=== PATIENT | female | born 1990 | race Caucasian/White ===

== ENCOUNTER 2016-07-11 04:58 | Emergency (ER) | payer BC ==
[2016-07-11] MEDS ORDERED: Lactated Ringers 1,000 ML IV SCH (06:00)
[2016-07-11] MEDS ORDERED: Potassium Chloride 10% 20 MEQ/15 ML Soln 15 ML UD Cup PO ONE (06:42)
[2016-07-11] MEDS ORDERED: Acetaminophen 325 MG Tab PO ONE (07:06)
[2016-07-11] MEDS ORDERED: Acetaminophen 325 MG Tab ONE (07:07)
[2016-07-11 07:10] VITALS: BP 104/57
--- NOTE | 2016-07-11 10:13 | CR ---
DATE OF SERVICE: 07/11/16 CLINICAL DATA: cough PA AND LATERAL CHEST: No priors. The heart size is normal. The lungs are clear. The exam is otherwise unremarkable. IMPRESSION: Normal exam. [id number] MTDD
== END 2016-07-11 07:23 | disposition home or self-care (01) ==
LOC: LB.ED 04:58 → MERGE 04:58 → LB.ED 07:23
DX: J18.9 Pneumonia, unspecified organism (principal); E83.51 Hypocalcemia
CPT/HCPCS: 36415; 71020; 80053; 81001; 81025; 82150; 85025; 87430; 87804; 96360; 99283; A9270; J7120

== ENCOUNTER 2019-07-20 16:39 | Emergency (ER) | payer BC ==
[2019-07-20] MEDS ORDERED: Sodium Chloride 0.9% 1,000 ML IV ONE (16:56)
[2019-07-20] MEDS ORDERED: Pantoprazole 80 MG in Sodium Chloride 0.9% 100 ML IV ONE (16:57)
[2019-07-20] MEDS ORDERED: Pantoprazole 40 MG Vial ONE (17:56)
[2019-07-20 19:20] VITALS: BP 135/91; PULSE 102
--- NOTE | 2019-07-20 19:41 | EDM.PDOC ---
ED HPI GENERAL MEDICAL PROBLEM - General Chief Complaint: General Stated Complaint: PASSED OUT Time Seen by Provider: 07/20/19 17:15 - Related Data Allergies Allergy/AdvReac Type Severity Reaction Status Date / Time No Known Allergies Allergy Verified 07/20/19 16:57 Home Meds: Home Meds Escitalopram [Lexapro] 20 mg PO DAILY 09/18/15 [History] traZODone 50 mg PO BEDTIME 09/18/15 [History] NK [No Known Home Meds] 07/11/16 [History] Past Medical History - Past Health History Medical/Surgical History: Denies Medical/Surgical History Gastrointestinal History: Reports: Other (See Below) Other Gastrointestinal History: bleeding ulcer 2 weeks ago Psychiatric History: Reports: Depression - Past Surgical History HEENT Surgical History: Reports: Eye Surgery, Other (See Below) Social & Family History - Family History Cardiac: Reports: Heart Failure ED ROS GENERAL - Review of Systems Review Of Systems: Comprehensive ROS is negative, except as noted in HPI. ED EXAM, GENERAL - Physical Exam Exam: See Below Exam Limited By: No Limitations General Appearance: Alert, WD/WN, No Apparent Distress Eye Exam: Bilateral Eye: EOMI, PERRL Ears: Normal External Exam, Normal Canal, Normal TMs, Other (not visualized per baseline on left) Nose: Normal Inspection, Nasal Drainage, Clear Rhinorrhea Throat/Mouth: Normal Inspection, Normal Gums, Normal Oropharynx, Normal Voice, No Airway Compromise Head: Atraumatic, Normocephalic Neck: Normal Inspection, Supple, Non-Tender, Full Range of Motion Respiratory/Chest: No Respiratory Distress, Lungs Clear, Normal Breath Sounds Cardiovascular: Regular Rate, Rhythm, No Gallop, No Murmur, No Rub GI/Abdominal: Normal Bowel Sounds, Soft, Non-Tender Back Exam: Normal Inspection, Full Range of Motion Extremities: Normal Inspection, Normal Range of Motion, Non-Tender, No Pedal Edema, Normal Capillary Refill Neurological: Alert, Oriented, CN II-XII Intact, Normal Cognition, Normal Gait, No Motor/Sensory Deficits Psychiatric: Normal Affect, Normal Mood Skin Exam: Warm, Dry Lymphatic: No Adenopathy Course - Vital Signs Last Recorded V/S: Last Vital Signs Temp 98.3 F 07/20/19 17:10 Pulse 102 H 07/20/19 17:10 Resp 16 07/20/19 17:10 BP 135/91 H 07/20/19 17:10 Pulse Ox 99 07/20/19 17:10 - Orders/Labs/Meds Orders: Active Orders 24 hr Category Date Time Status EKG Documentation Completion [RC] ASDIRECTED Care 07/20/19 17:01 Active Fecal Occult Blood Collection [RC] ASDIRECTED Care 07/20/19 16:58 Active FERRITIN, SERUM Stat Lab 07/20/19 17:00 Received FOLATE (FOLIC ACID), SERUM Stat Lab 07/20/19 17:00 Received IRON AND TIBC Stat Lab 07/20/19 17:00 Received PERIPH BLOOD SMEAR PATHOLOGIST [HEME] Stat Lab 07/20/19 17:00 Received VITAMIN B12 Stat Lab 07/20/19 17:00 Received Labs: Laboratory Tests 07/20/19 07/20/19 07/20/19 Range/Units 17:00 17:00 17:00 WBC 3.8 L D (4.0-11.0) K/uL RBC 4.16 (3.80-5.80) M/uL Hgb 9.9 L (11.5-16.5) g/dL Hct 32.4 L (37.0-47.0) % MCV 78 (76-96) fL MCH 23.8 L (27.0-32.0) pg MCHC 30.6 L (31.0-35.0) g/dL RDW 19.5 H (11.0-16.0) % Plt Count 276 (150-500) K/uL MPV 9.6 (6.0-10.0) fL Neut % (Auto) 31.3 L (45.0-70.0) % Lymph % (Auto) 49.0 H (20.0-40.0) % [place] % (Auto) 11.8 H (3.0-10.0) % Eos % (Auto) 7.6 H (1.0-5.0) % Baso % (Auto) 0.3 (0.0-0.5) % Neut # (Auto) 1.20 L (2.00-7.50) K/uL Lymph # (Auto) 1.87 (1.50-4.00) K/uL [place] # (Auto) 0.45 (0.20-0.80) K/uL Eos # (Auto) 0.29 (0.04-0.40) K/uL Baso # (Auto) 0.01 L (0.02-0.10) K/uL PT (9.0-11.5) sec INR (1.0-3.5) APTT (24.4-33.2) SECONDS D-Dimer, Quantitative (0-400) ng/mL Sodium 141 (136-145) mmol/L Potassium 3.7 (3.5-5.1) mmol/L Chloride 104 (98-107) mmol/L Carbon Dioxide 26.9 (21.0-32.0) mmol/L Anion Gap 13.8 (5.0-15.0) mmol/L BUN 11 D (8-26) mg/dL Creatinine 0.73 (0.55-1.02) mg/dL Est Cr Clr Drug Dosing TNP Estimated GFR (MDRD) > 60 (>60) MLS/MIN BUN/Creatinine Ratio 15.1 (6-25) Glucose 92 (74-100) mg/dL Calcium 8.2 L (8.5-10.1) mg/dL Total Bilirubin 0.2 D (0.0-1.0) mg/dL AST 25 (15-37) U/L ALT 26 (12-78) U/L Alkaline Phosphatase 53 (46-116) U/L Troponin I < 0.017 (0.000-0.060) ng/mL Total Protein 7.2 (6.4-8.2) g/dL Albumin 3.7 (3.4-5.0) g/dL Globulin 3.5 (2.2-4.2) g/dL Albumin/Globulin Ratio 1.1 (0.8-2.0) Urine Color Urine Appearance (CLEAR) Urine pH (5.0-8.0) Ur Specific [place] (1.003-1.030) Urine Protein (NEGATIVE) mg/dL Urine Glucose (UA) (NEGATIVE) mg/dL Urine Ketones (NEGATIVE) mg/dL Urine Occult Blood (NEGATIVE) Urine Nitrite (NEGATIVE) Urine Bilirubin (NEGATIVE) Urine Urobilinogen (0.2-1.0) E.U./dL Ur Leukocyte Esterase (NEGATIVE) Urine RBC /HPF Urine WBC /HPF Ur Squamous Epith Cells /HPF Urine HCG, Qual (NEGATIVE) 07/20/19 07/20/19 07/20/19 Range/Units 17:00 17:00 18:25 WBC (4.0-11.0) K/uL RBC (3.80-5.80) M/uL Hgb (11.5-16.5) g/dL Hct (37.0-47.0) % MCV (76-96) fL MCH (27.0-32.0) pg MCHC (31.0-35.0) g/dL RDW (11.0-16.0) % Plt Count (150-500) K/uL MPV (6.0-10.0) fL Neut % (Auto) (45.0-70.0) % Lymph % (Auto) (20.0-40.0) % [place] % (Auto) (3.0-10.0) % Eos % (Auto) (1.0-5.0) % Baso % (Auto) (0.0-0.5) % Neut # (Auto) (2.00-7.50) K/uL Lymph # (Auto) (1.50-4.00) K/uL [place] # (Auto) (0.20-0.80) K/uL Eos # (Auto) (0.04-0.40) K/uL Baso # (Auto) (0.02-0.10) K/uL PT 9.9 (9.0-11.5) sec INR 1.0 (1.0-3.5) APTT 22.1 L (24.4-33.2) SECONDS D-Dimer, Quantitative < 100 (0-400) ng/mL Sodium (136-145) mmol/L Potassium (3.5-5.1) mmol/L Chloride (98-107) mmol/L Carbon Dioxide (21.0-32.0) mmol/L Anion Gap (5.0-15.0) mmol/L BUN (8-26) mg/dL Creatinine (0.55-1.02) mg/dL Est Cr Clr Drug Dosing Estimated GFR (MDRD) (>60) MLS/MIN BUN/Creatinine Ratio (6-25) Glucose (74-100) mg/dL Calcium (8.5-10.1) mg/dL Total Bilirubin (0.0-1.0) mg/dL AST (15-37) U/L ALT (12-78) U/L Alkaline Phosphatase (46-116) U/L Troponin I (0.000-0.060) ng/mL Total Protein (6.4-8.2) g/dL Albumin (3.4-5.0) g/dL Globulin (2.2-4.2) g/dL Albumin/Globulin Ratio (0.8-2.0) Urine Color Yellow Urine Appearance Clear (CLEAR) Urine pH 6.5 (5.0-8.0) Ur Specific [place] 1.025 (1.003-1.030) Urine Protein Negative (NEGATIVE) mg/dL Urine Glucose (UA) Negative (NEGATIVE) mg/dL Urine Ketones Negative (NEGATIVE) mg/dL Urine Occult Blood Moderate H (NEGATIVE) Urine Nitrite Negative (NEGATIVE) Urine Bilirubin Negative (NEGATIVE) Urine Urobilinogen 0.2 (0.2-1.0) E.U./dL Ur Leukocyte Esterase Negative (NEGATIVE) Urine RBC 5-10 H /HPF Urine WBC 0-5 H /HPF Ur Squamous Epith Cells Moderate /HPF Urine HCG, Qual (NEGATIVE) 07/20/19 Range/Units 18:25 WBC (4.0-11.0) K/uL RBC (3.80-5.80) M/uL Hgb (11.5-16.5) g/dL Hct (37.0-47.0) % MCV (76-96) fL MCH (27.0-32.0) pg MCHC (31.0-35.0) g/dL RDW (11.0-16.0) % Plt Count (150-500) K/uL MPV (6.0-10.0) fL Neut % (Auto) (45.0-70.0) % Lymph % (Auto) (20.0-40.0) % [place] % (Auto) (3.0-10.0) % Eos % (Auto) (1.0-5.0) % Baso % (Auto) (0.0-0.5) % Neut # (Auto) (2.00-7.50) K/uL Lymph # (Auto) (1.50-4.00) K/uL [place] # (Auto) (0.20-0.80) K/uL Eos # (Auto) (0.04-0.40) K/uL Baso # (Auto) (0.02-0.10) K/uL PT (9.0-11.5) sec INR (1.0-3.5) APTT (24.4-33.2) SECONDS D-Dimer, Quantitative (0-400) ng/mL Sodium (136-145) mmol/L Potassium (3.5-5.1) mmol/L Chloride (98-107) mmol/L Carbon Dioxide (21.0-32.0) mmol/L Anion Gap (5.0-15.0) mmol/L BUN (8-26) mg/dL Creatinine (0.55-1.02) mg/dL Est Cr Clr Drug Dosing Estimated GFR (MDRD) (>60) MLS/MIN BUN/Creatinine Ratio (6-25) Glucose (74-100) mg/dL Calcium (8.5-10.1) mg/dL Total Bilirubin (0.0-1.0) mg/dL AST (15-37) U/L ALT (12-78) U/L Alkaline Phosphatase (46-116) U/L Troponin I (0.000-0.060) ng/mL Total Protein (6.4-8.2) g/dL Albumin (3.4-5.0) g/dL Globulin (2.2-4.2) g/dL Albumin/Globulin Ratio (0.8-2.0) Urine Color Urine Appearance (CLEAR) Urine pH (5.0-8.0) Ur Specific [place] (1.003-1.030) Urine Protein (NEGATIVE) mg/dL Urine Glucose (UA) (NEGATIVE) mg/dL Urine Ketones (NEGATIVE) mg/dL Urine Occult Blood (NEGATIVE) Urine Nitrite (NEGATIVE) Urine Bilirubin (NEGATIVE) Urine Urobilinogen (0.2-1.0) E.U./dL Ur Leukocyte Esterase (NEGATIVE) Urine RBC /HPF Urine WBC /HPF Ur Squamous Epith Cells /HPF Urine HCG, Qual Negative (NEGATIVE) Meds: Medications Discontinued Medications Generic Name Dose Route Start Last Admin Trade Name Freq PRN Reason Stop Dose Admin Pantoprazole Sodium 80 mg/ 100 mls @ 200 mls/hr 07/20/19 16:57 07/20/19 17:51 Sodium Chloride IV 07/20/19 17:26 200 mls/hr .BOLUS ONE Administration Sodium Chloride 1,000 mls @ 999 mls/hr 07/20/19 16:56 07/20/19 17:46 Normal Saline IV 07/20/19 17:56 999 mls/hr .BOLUS ONE Administration Pantoprazole Sodium Confirm 07/20/19 17:56 07/20/19 18:00 Protonix Iv Administered 07/20/19 17:57 40 mg Dose Administration 40 mg .ROUTE .STK-MED ONE Departure - Departure Time of Disposition: 19:42 Disposition: Home, Self-Care 01 Condition: Good Clinical Impression: Vasovagal syncope - Discharge Information Instructions: Syncope, [id number] Referrals: PCP,None [Primary Care Provider] - Additional Instructions: Follow up with your doctor in the clinic. Stay hydrated. Keep it easy. Sincerely, Sandor Montes MD Sepsis Event Note - Evaluation Sepsis Screening Result: No Definite Risk - Focused Exam Vital Signs: Vital Signs Temp Pulse Resp BP Pulse Ox 07/20/19 17:10 98.3 F 102 H 16 135/91 H 99 Date Exam was Performed: 07/20/19 Time Exam was Performed: 19:27 - My Orders Last 24 Hours: My Active Orders 07/20/19 16:58 Fecal Occult Blood Collection [RC] ASDIRECTED 07/20/19 17:00 FERRITIN, SERUM Stat FOLATE (FOLIC ACID), SERUM Stat IRON AND TIBC Stat PERIPH BLOOD SMEAR PATHOLOGIST [HEME] Stat VITAMIN B12 Stat 07/20/19 17:01 EKG Documentation Completion [RC] ASDIRECTED - Assessment/Plan Last 24 Hours: My Active Orders 07/20/19 16:58 Fecal Occult Blood Collection [RC] ASDIRECTED 07/20/19 17:00 FERRITIN, SERUM Stat FOLATE (FOLIC ACID), SERUM Stat IRON AND TIBC Stat PERIPH BLOOD SMEAR PATHOLOGIST [HEME] Stat VITAMIN B12 Stat 07/20/19 17:01 EKG Documentation Completion [RC] ASDIRECTED
[2019-07-23 04:12] LABS: IRON BIND.CAP.(TIBC) 445 ug/dL (250-450); IRON SATURATION 3 % (15-55); IRON, SERUM 12 ug/dL (27-159); UIBC 433 ug/dL (131-425)
== END 2019-07-20 20:09 | disposition home or self-care (01) ==
LOC: LB.ED 16:39
DX: R55 Syncope and collapse (principal); F32.9 Major depressive disorder, single episode, unspecified; Z79.899 Other long term (current) drug therapy
CPT/HCPCS: 36415; 80053; 81001; 81025; 82607; 82728; 82746; 83540; 83550; 84484; 85025; 85379; 85610; 85730; 93005; 96365; 99284-25; C9113; J7030; J7050

== ENCOUNTER 2020-01-16 14:12 | Emergency (ER) | payer BC ==
[2020-01-16] MEDS ORDERED: Prochlorperazine 5 MG in Sodium Chloride 0.9% 50 ML IV ONE (14:26)
[2020-01-16] MEDS ORDERED: Sodium Chloride 0.9% 1,000 ML IV ONE (14:26)
[2020-01-16] MEDS ORDERED: diphenhydrAMINE 50 MG/ML SDV IVPUSH ONE (14:26)
[2020-01-16] MEDS ORDERED: Ketorolac 60 MG/2 ML SDV IVPUSH ONE (14:26)
[2020-01-16] MEDS ORDERED: Ketorolac 30 MG/ML SDV ONE (14:41)
[2020-01-16] MEDS ORDERED: Prochlorperazine 10 MG/2 ML SDV ONE (14:41)
[2020-01-16] MEDS ORDERED: diphenhydrAMINE 50 MG/ML SDV ONE (14:42)
--- NOTE | 2020-01-16 14:59 | EDM.PDOC ---
ED HPI GENERAL MEDICAL PROBLEM - General Chief Complaint: Headache Stated Complaint: MIGRAINE Time Seen by Provider: 01/16/20 14:15 Source of Information: Reports: Patient History Limitations: Reports: No Limitations - History of Present Illness INITIAL COMMENTS - FREE TEXT/NARRATIVE: patient PMH migraines, had a migraine Sunday, resolved, returned this AM at 0400, she has taken ibuprofen and excedrin without relief. + photophobia, nausea. She feels that this is a typical migraine for her (location), without relief from OTC medications Duration: Getting Worse Location: Reports: Head Quality: Reports: Pressure Improves with: Reports: None Worsens with: Reports: None Associated Symptoms: Reports: Headaches Treatments RESIDENTIAL SERVICE TECHNICIAN: Reports: Other Medication(s) - Related Data Allergies Allergy/AdvReac Type Severity Reaction Status Date / Time No Known Allergies Allergy Verified 07/20/19 16:57 Home Meds: Home Meds NK [No Known Home Meds] 07/11/16 [History] Past Medical History - Past Health History Medical/Surgical History: Denies Medical/Surgical History Gastrointestinal History: Reports: Other (See Below) Other Gastrointestinal History: bleeding ulcer 2 weeks ago Psychiatric History: Reports: Depression - Past Surgical History HEENT Surgical History: Reports: Eye Surgery, Other (See Below) Social & Family History - Family History Cardiac: Reports: Heart Failure - Caffeine Use Caffeine Use: Reports: None ED ROS GENERAL - Review of Systems Review Of Systems: See Below Constitutional: Reports: No Symptoms HEENT: Reports: No Symptoms Respiratory: Reports: No Symptoms Cardiovascular: Reports: No Symptoms Endocrine: Reports: No Symptoms GI/Abdominal: Reports: Nausea, Vomiting : Reports: No Symptoms Musculoskeletal: Reports: No Symptoms Skin: Reports: No Symptoms Neurological: Reports: Headache Psychiatric: Reports: No Symptoms Hematologic/Lymphatic: Reports: No Symptoms Immunologic: Reports: No Symptoms - Physical Exam Exam: See Below Exam Limited By: No Limitations General Appearance: Alert, Mild Distress Eye Exam: Bilateral Eye: PERRL Ears: Normal External Exam Nose: Normal Inspection Throat/Mouth: Normal Inspection, Normal Oropharynx, Normal Voice Head Exam: Atraumatic Neck: Normal Inspection, Non-Tender, Full Range of Motion Respiratory/Chest: No Respiratory Distress (Female) Exam: Deferred Rectal (Female) Exam: Deferred Neuro Exam (Abbreviated): Alert, Oriented, Normal Cognition, Normal Gait, Normal Reflexes, No Motor/Sensory Deficits Back Exam: Normal Inspection Extremities: Normal Inspection Psychiatric: Normal Affect, Normal Mood Skin Exam: Warm, Dry, Intact Course - Vital Signs Last Recorded V/S: Last Vital Signs Temp 98 F 01/16/20 14:15 Pulse 128 H 01/16/20 14:15 Resp 18 01/16/20 14:15 BP 148/97 H 01/16/20 14:15 Pulse Ox 100 01/16/20 14:15 - Orders/Labs/Meds Meds: Medications Discontinued Medications Generic Name Dose Route Start Last Admin Trade Name [place] PRN Reason Stop Dose Admin Diphenhydramine HCl 25 mg 01/16/20 14:26 01/16/20 14:35 Benadryl IVPUSH 01/16/20 14:27 25 mg ONETIME ONE Administration Diphenhydramine HCl Confirm 01/16/20 14:42 Benadryl Administered 01/16/20 14:43 Dose 50 mg .ROUTE .STK-MED ONE Prochlorperazine Edisylate 5 51 mls @ 150 mls/hr 01/16/20 14:26 mg/ Sodium Chloride IV 01/16/20 14:46 ONETIME ONE Sodium Chloride 1,000 mls @ 1,000 mls/hr 01/16/20 14:26 01/16/20 14:38 Normal Saline IV 01/16/20 15:25 1,000 mls/hr .BOLUS ONE Administration Ketorolac Tromethamine 15 mg 01/16/20 14:26 01/16/20 14:38 Toradol IVPUSH 01/16/20 14:27 15 mg ONETIME ONE Administration Ketorolac Tromethamine Confirm 01/16/20 14:41 Toradol Administered 01/16/20 14:42 Dose 30 mg .ROUTE .STK-MED ONE Prochlorperazine Edisylate Confirm 01/16/20 14:41 Compazine Administered 01/16/20 14:42 Dose 10 mg .ROUTE .STK-MED ONE Departure - Departure Time of Disposition: 16:00 Disposition: Home, Self-Care 01 Condition: Good Clinical Impression: Migraine - Discharge Information *PRESCRIPTION DRUG MONITORING PROGRAM REVIEWED*: Not Applicable *COPY OF PRESCRIPTION DRUG MONITORING REPORT IN PATIENT JABIER: Not Applicable Instructions: Recurrent Migraine Headache, [id number] Referrals: PCP,None [Primary Care Provider] - Forms: ED Department Discharge Additional Instructions: follow up with your PMD as needed. Return to ED for any increased or new concerning symptoms. Rest, fluids at home. Care Plan Goals: Go home rest in darkened quiet room. Sepsis Event Note (ED) - Focused Exam Vital Signs: Vital Signs Temp Pulse Resp BP Pulse Ox 01/16/20 14:15 98 F 128 H 18 148/97 H 100 - Assessment/Plan Plan: Pain 5/10 now, patient is comfortable going home after fluids infused. She will return to ED for any increased or new concerning symptoms. She verbalized understanding of DC. DDX: CVA, SAH, sinusitis. Neuro exam is unremarkable, patient is confident that this is her typical migraine, we discussed imaging and will hold off at this time.
[2020-01-16 15:34] VITALS: PULSE 128
[2020-01-16 20:39] VITALS: BP 136/88
== END 2020-01-16 14:20 | disposition home or self-care (01) ==
LOC: LB.ED 14:12
DX: G43.909 Migraine, unspecified, not intractable, without status migrainosus (principal)
CPT/HCPCS: 96361; 96374; 96375; 99283-25; J1200; J1885; J7030

== ENCOUNTER 2022-03-25 16:47 | Emergency (ER) | payer BC ==
[2022-03-25 17:09] VITALS: BP 161/116; PULSE 118
[2022-03-25] MEDS ORDERED: LORazepam 2 MG/ML SDV IVPUSH ONE (18:23)
[2022-03-25] MEDS ORDERED: diphenhydrAMINE 50 MG/ML SDV IVPUSH ONE (18:23)
[2022-03-25] MEDS ORDERED: diphenhydrAMINE 50 MG/ML SDV ONE (18:33)
[2022-03-25] MEDS ORDERED: LORazepam 2 MG/ML SDV ONE (18:33)
== END 2022-03-25 19:52 ==
LOC: LB.ED 16:47
DX: I63.9 Cerebral infarction, unspecified (principal)
CPT/HCPCS: 36415; 70450; 80053; 85025; 85610; 96374; 96375; 99285; A0425; A0429; J1200; J2060

== ENCOUNTER 2023-09-23 18:28 | Emergency (ER) | payer BC ==
[2023-09-23 19:34] LABS: BASOPHILS ABSOLUTE AUTO 0.01 K/uL (0.02-0.10); BASOPHILS PERCENT AUTO 0.2 % (0.0-0.5); EOSINOPHILS PERCENT AUTO 1.7 % (1.0-5.0); HEMATOCRIT 31.2 % (37.0-47.0); HEMOGLOBIN 9.5 g/dL (11.5-16.5); LYMPHOCYTES ABSOLUTE AUTO 0.97 K/uL (1.50-4.00); LYMPHOCYTES PERCENT AUTO 16.2 % (20.0-40.0); MEAN CORPUSCULAR HEMOGLOBIN 22.6 pg (27.0-32.0); MEAN CORPUSCULAR HGB CONC 30.4 g/dL (31.0-35.0); MEAN CORPUSCULAR VOLUME 74 fL (76-96); MEAN PLATELET VOLUME 10.1 fL (6.0-10.0); MONOCYTES PERCENT AUTO 8.3 % (3.0-10.0); NEUTROPHILS ABSOLUTE AUTO 4.42 K/uL (2.00-7.50); NEUTROPHILS PERCENT AUTO 73.6 % (45.0-70.0); PLATELET COUNT,PLT 270 K/uL (150-500); RED CELL DISTRIBUTION WIDTH 16.8 % (11.0-16.0)
[2023-09-23 19:55] LABS: ALBUMIN 3.6 g/dL (3.4-5.0); ANION GAP 16.7 mmol/L (5.0-15.0); BILIRUBIN TOTAL 0.3 mg/dL (0.0-1.0); BUN/CREATININE RATIO 12.5 (6-25); CALCIUM 8.5 mg/dL (8.5-10.1); CARBON DIOXIDE,CO2 21.8 mmol/L (21.0-32.0); CREATININE 0.88 mg/dL (0.55-1.02); EST CRCL DRUG DOSING (CG) 65.92 mL/min; POTASSIUM,K 3.5 mmol/L (3.5-5.1); PROTEIN TOTAL,TP 7.2 g/dL (6.4-8.2)
[2023-09-23 20:17] LABS: CORONAVIRUS COVID-19 NAA NEGATIVE (NEGATIVE); INFLUENZA A NAA NEGATIVE (NEGATIVE); INFLUENZA B NAA NEGATIVE (NEGATIVE); RESPIRATORY SYNCYTIAL VIR NAA NEGATIVE (NEGATIVE)
[2023-09-23] MEDS: Ketorolac 30 MG/ML SDV IM ONE (20:44)
[2023-09-23] MEDS: Ketorolac 30 MG/ML SDV ONE (20:49)
[2023-09-23 21:22] LABS: APPEARANCE,URINE CLEAR (CLEAR); BILIRUBIN,URINE NEGATIVE (NEGATIVE); COLOR,URINE YELLOW; GLUCOSE,URINE NEGATIVE (NEGATIVE); KETONES,URINE 15 mg/dL (NEGATIVE); LEUKOCYTE ESTERASE,URINE NEGATIVE (NEGATIVE); NITRITE,URINE NEGATIVE (NEGATIVE); OCCULT BLOOD,URINE LARGE (NEGATIVE); PH,URINE 5.5 (5.0-8.0); PROTEIN,URINE NEGATIVE (NEGATIVE); UROBILINOGEN,URINE 0.2 E.U./dL (0.2-1.0)
[2023-09-23 21:26] LABS: BACTERIA,URINE OCCASIONAL /HPF; SQUAMOUS EPITHELIAL CELLS,UR OCCASIONAL /HPF; WBC,URINE NOT SEEN /HPF
[2023-09-24 00:21] VITALS: BP 112/67; PULSE 88
== END 2023-09-23 22:05 | disposition home or self-care (01) ==
LOC: LB.ED 18:28
DX: R42 Dizziness and giddiness (principal); N94.6 Dysmenorrhea, unspecified; I10 Essential (primary) hypertension; Z79.899 Other long term (current) drug therapy
CPT/HCPCS: 0241U; 36415; 71045; 80053; 81001; 85025; 93005; 96372; 99285; J1885